=== PATIENT | female | born 1995 | race African-American/Black ===

== ENCOUNTER 2018-08-13 09:03 | Emergency (ER) | payer BC, OTHER ==
[2018-08-13 09:30] VITALS: BP 115/67; PULSE 82; TEMP 99.2; BMI 26.6
[2018-08-13] MEDS ORDERED: ACETAMINOPHEN 500 MG TABLET (FP) PO ONE (10:11)
[2018-08-13] MEDS ORDERED: ACETAMINOPHEN 500 MG TABLET (FP) ONE (10:14)
--- NOTE | 2018-08-13 10:16 | PDOC ---
History of Present Illness - General Chief Complaint: Cold Symptoms Stated Complaint: CHEST PAIN (12 WKS ) Time Seen by Provider: 08/13/18 09:58 History Source: Patient Exam Limitations: Clinical Condition - History of Present Illness Initial Comments: 08/13/18 10:09 Patient 16 weeks with no significant past medical history present with complain of 4 day history of runny nose, nasal congestion, ROSE, intermittent cough and intermittent chest tightness. Denies fever, chills, nausea or vomiting and denies any other symptoms 08/13/18 10:12 Timing/Duration: other (4 days) Past History - Past Medical History Allergies/Adverse Reactions: Allergies Allergy/AdvReac Type Severity Reaction Status Date / Time No Known Allergies Allergy Verified 08/13/18 09:24 Home Medications: Ambulatory Orders Albuterol Sulfate Inhaler - [Ventolin Hfa Inhaler -] 1 - 2 inh PO QID PRN #1 inhaler 08/13/18 Benzonatate [Tessalon Pearls -] 100 mg PO TID PRN 2 Days #6 capsule 08/13/18 Ipratropium Orofino 2 spray NS BID PRN #1 spray 08/13/18 COPD: No - Immunization History Immunization Up to Date: Yes - Suicide/Smoking/Psychosocial Hx Smoking History: Never smoked Hx Alcohol Use: No Drug/Substance Use Hx: No Review of Systems - Review of Systems Able to Perform ROS?: Yes Is the patient limited Hebrew proficient: No Constitutional: No: Chills, Diaphoresis, Fever, Loss of Appetite, Malaise, Night Sweats, Weakness, Weight Stable, Other HEENTM: Yes: See HPI, Nose Congestion. No: Eye Pain, Blurred Vision, Tearing, Recent change in vision, Double Vision, Cataracts, Ear Pain, Ocular Prothesis, Ear Discharge, Nose Pain, Tinnitus, Nose Bleeding, Hearing Loss, Throat Pain, Throat Swelling, Mouth Pain, Dental Problems, Difficulty Swallowing, Mouth Swelling, Other Respiratory: Yes: Symptoms reported, See HPI, Cough. No: Orthopnea, Shortness of Breath, SOB with Exertion, SOB at Rest, Stridor, Wheezing, Productive cough, Hemoptysis, Other Cardiac (ROS): No: Chest Pain, Edema, Irregular Heart Rate, Lightheadedness, Palpitations, Syncope, Chest Tightness, Other ABD/GI: No: Abdominal Distended, Abd. Pain w/ defecation, Blood Streaked Bowels , Constipated, Diarrhea, Difficulty Swallowing, Nausea, Poor Appetite, Poor Fluid Intake, Rectal Bleeding, Vomiting, Indigestion, Abdominal cramping, Tarry Stools, Other Musculoskeletal: No: Back Pain, Muscle Pain All Other Systems: Reviewed and Negative *Physical Exam - Vital Signs Last Vital Signs Temp Pulse Resp BP Pulse Ox 99.2 F 82 18 115/67 99 08/13/18 09:24 08/13/18 09:24 08/13/18 09:24 08/13/18 09:24 08/13/18 09:24 - Physical Exam Comments: 08/13/18 10:11 GENERAL: Well developed, well nourished. Awake and alert. No acute distress. HEENT: Normocephalic, atraumatic. PERRLA, EOMI. No conjunctival pallor. Sclera are non-icteric. Moist mucous membranes. Oropharynx is clear. NECK: Supple. Full ROM. CARDIOVASCULAR: Regular rate and rhythm. No murmurs, rubs, or gallops. Distal pulses are 2+ and symmetric. PULMONARY: No evidence of respiratory distress. Lungs clear to auscultation bilaterally. No wheezing, rales or rhonchi. ABDOMINAL: Soft. Non-tender. Non-distended. No rebound or guarding. No organomegaly. Normoactive bowel sounds. MUSCULOSKELETAL Normal range of motion at all joints. EXTREMITIES: No cyanosis. No clubbing. No edema. No calf tenderness. SKIN: Warm and dry. Normal capillary refill. No rashes. No jaundice. NEUROLOGICAL: Alert, awake, appropriate. Gait is normal without ataxia. PSYCHIATRIC: Cooperative. Good eye contact. Appropriate mood General Appearance: Yes: Nourished, Appropriately Dressed. No: Apparent Distress Medical Decision Making - Medical Decision Making 08/13/18 10:12 16 weeks patient with no sig past medical history present with complain of 4 day history of URI symptoms and cough. Clinical exam unremarkable. Patient stable for outpatient treatment for URI with PCP follow- up. Tylenol 1 g given for headache *DC/Admit/Observation/Transfer Diagnosis at time of Disposition: Cough, Nasal congestion URI (upper respiratory infection) Qualifiers: URI type: unspecified URI Qualified Code(s): J06.9 - Acute upper respiratory infection, unspecified - Discharge Dispostion Disposition: HOME Condition at time of disposition: Stable Decision to Admit order: No - Prescriptions Prescriptions: Albuterol Sulfate Inhaler - [Ventolin Hfa Inhaler -] 1 - 2 inh PO QID PRN #1 inhaler PRN Reason: Cough Benzonatate [Tessalon Pearls -] 100 mg PO TID PRN 2 Days #6 capsule PRN Reason: Cough Ipratropium Orofino 2 spray NS BID PRN #1 spray PRN Reason: nasal congestion - Referrals Referrals: Erma Cruz MD [Primary Care Provider] - - Patient Instructions Printed Discharge Instructions: DI for Common Cold - Post Discharge Activity
== END 2018-08-13 10:22 | disposition home or self-care (01) ==
LOC: JERFT 09:03
DX: O99.89 Other specified diseases and conditions complicating pregnancy, childbirth and the puerperium (principal); J06.9 Acute upper respiratory infection, unspecified; Z3A.16 16 weeks gestation of pregnancy
CPT/HCPCS: 99281-25

== ENCOUNTER 2018-12-31 18:15 | Emergency (ER) | payer BC, OTHER ==
[2018-12-31 18:53] VITALS: BMI 31.8
--- NOTE | 2018-12-31 18:55 | PDOC ---
Rapid Medical Evaluation Chief Complaint: Nausea Medical Evaluation: Allergies Allergy/AdvReac Type Severity Reaction Status Date / Time No Known Allergies Allergy Verified 12/31/18 18:49 12/31/18 18:50 I have performed a brief in-person evaluation of this patient. The patient presents with a chief complaint of: nausea/ vomiting x 3 this am , diarhea/ x 6 last pm - [facility] , is 36 weeks preg. Pertinent physical exam findings: has body aches and lower abd pressure I have ordered the following: influenza/ called L and D and will be taken for eval/ fluids. The patient will proceed to the ED for further evaluation. 12/31/18 18:55 Discharge Disposition - Diagnosis N&V (nausea and vomiting) - Referrals - Patient Instructions - Post Discharge Activity
[2018-12-31 22:00] VITALS: TEMP 98
[2018-12-31] MEDS ORDERED: DEXTROSE 5%-LACTATED RINGERS 1,000 ML IV SCH (22:00)
--- NOTE | 2018-12-31 22:26 | PDOC ---
History of Present Illness - General Chief Complaint: Labor Assessment Stated Complaint: BODY ACHES/NAUSEA Time Seen by Provider: 12/31/18 21:48 History Source: Patient Exam Limitations: No Limitations - History of Present Illness Initial Comments: 12/31/18 22:23 HISTORY OF PRESENT ILLNESS: This is a 23-year-old currently 35 weeks 6 days gestation who presents emergency department for evaluation of diarrhea and vomiting for one day. Patient was initially seen and evaluated in rapid medical evaluation where flu swab was negative and patient was sent to labor and delivery for evaluation. Patient returned from L&D was noted to be tachycardic at 127 after receiving 1 L of IV fluids at [facility]. She denies fevers, chills, chest pain, shortness of breath. No recent travel or sick contacts. PAST MEDICAL HISTORY: Denies past medical history SURGICAL HISTORY: Denies ALLERGIES: No known drug allergies REVIEW OF SYSTEMS General/Constitutional: Denies fever or chills. Denies weakness, weight change. HEENT: Denies change in vision. Denies ear pain or discharge. Denies sore throat. Cardiovascular: Denies chest pain or shortness of breath. Respiratory: Denies cough, wheezing, or hemoptysis. Gastrointestinal: see HPI Genitourinary: Denies dysuria, frequency, or change in urination. Musculoskeletal: Denies joint or muscle swelling or pain. Denies neck or back pain. Skin and breasts: Denies rash or easy bruising. Neurologic: Denies headache, vertigo, loss of consciousness, or loss of sensation. Psychiatric: Denies depression or anxiety. Endocrine: Denies increased thirst. Denies abnormal weight change. Hematologic/Lymphatic: Denies anemia, easy bleeding, or history of blood clots. Allergic/Immunologic: Denies hives or skin allergy. Denies latex allergy. PHYSICAL EXAM General Appearance: Well-appearing, appropriately dressed. No apparent distress , no intoxication. HEENT: EOMI, PERRLA, normal ENT inspection, normal voice, TMs normal, pharynx normal. No conjunctival pallor. No photophobia, scleral icterus. Neck: Supple. Trachea midline. No tenderness, rigidity, carotid bruit, stridor , lymphadenopathy, or thyromegaly. Respiratory/Chest: Lungs CTAB. No shortness of breath, chest tenderness, respiratory distress, accessory muscle use. No crackles, rales, rhonchi, stridor , wheezing, dullness Cardiovascular: Tachycardic. S1, S2. No JVD, murmur, bradycardia. Vascular Pulses: Dorsalis-Pedis (R): 2+, Dorsalis-Pedis (L): 2+ Gastrointestinal/Abdominal: Normal bowel sounds. Gravid abdomen. No tenderness or rebound tenderness. No organomegaly, pulsatile mass, guarding, hernia, hepatomegaly, splenomegaly. Lymphatic: No adenopathy, tenderness. Musculoskeletal/Extremities: Normal inspection. FROM of all extremities, normal capillary refill. Pelvis Stable. No CVA tenderness. No tenderness to extremities, pedal edema, swelling, erythema or deformity. Integumentary: Appropriate color, dry, warm. No cyanosis, erythema, jaundice or rash Neurologic: leaf sticker II-XII intact. Fully oriented, alert. Appropriate mood/affect. Motor strength 5/5. No appreciable EOM palsy, facial droop or sensory deficit. Past History - Past Medical History Allergies/Adverse Reactions: Allergies Allergy/AdvReac Type Severity Reaction Status Date / Time No Known Allergies Allergy Verified 12/31/18 22:08 Home Medications: Ambulatory Orders Ferrous Sulfate 325 mg PO BID 12/31/18 Iron IV WEEKLY 12/31/18 Pnv No.95/Ferrous Fum/Folic AC [ Vitamin Tablet] 1 each PO DAILY Cephalexin Monohydrate [Keflex -] 500 mg PO BID #14 capsule 01/01/19 COPD: No - Immunization History Immunization Up to Date: Yes - Suicide/Smoking/Psychosocial Hx Smoking History: Never smoked Hx Alcohol Use: No Drug/Substance Use Hx: No *Physical Exam - Vital Signs Last Vital Signs Temp Pulse Resp BP Pulse Ox 98.0 F 126 H 18 101/65 99 12/31/18 21:00 12/31/18 21:53 12/31/18 21:53 12/31/18 21:53 12/31/18 21:53 Moderate Sedation - Procedure Monitoring Vital Signs: Procedure Monitoring Vital Signs Temperature 98.0 F 12/31/18 21:00 Pulse Rate 126 H 12/31/18 21:53 Respiratory Rate 18 12/31/18 21:53 Blood Pressure 101/65 12/31/18 21:53 O2 Sat by Pulse Oximetry (%) 99 12/31/18 21:53 ED Treatment Course - LABORATORY CBC & Chemistry Diagram: 12/31/18 23:00 12/31/18 23:00 Medical Decision Making - Medical Decision Making 12/31/18 22:25 A/P: 23-year-old woman who is 36 weeks gestation with diarrhea and tachycardia EKG, labs, urine, IV fluids, reassess 01/01/19 02:48 Laboratory testing is unremarkable. Urinalysis with 1+ leuk esterase 8 WBCs on high-power field. This patient is I will treat for urinary tract infection. I discussed the physical exam findings, ancillary test results and final diagnoses with the patient. I answered all of the patient's questions. The patient was satisfied with the care received and felt comfortable with the discharge plan and treatment plan. The patient will call their primary care physician within 24 hours to arrange follow-up and will return to the Emergency Department with any new, persistent or worsening symptoms. *DC/Admit/Observation/Transfer Diagnosis at time of Disposition: N&V (nausea and vomiting) UTI (urinary tract infection) Qualifiers: Urinary tract infection type: acute cystitis Hematuria presence: without hematuria Qualified Code(s): N30.00 - Acute cystitis without hematuria - Discharge Dispostion Disposition: HOME Condition at time of disposition: Fair Decision to Admit order: No - Prescriptions Prescriptions: Cephalexin Monohydrate [Keflex -] 500 mg PO BID #14 capsule - Referrals Referrals: Benjamin Shaver MD [Staff Physician] - 1 week (12/31/18 4905 Safely discharged from labor and delivery. Please see your MD and make him aware of todays findings. Return to the hospital if you experience lower abdominal pain, vaginal bleeding and/or suspect decrease baby movement and/or rupture of membranes. ) - Patient Instructions Additional Instructions: Rest, drink lots of fluids: Teas, water, soups Avoid contact with others until fevers and symptoms resolved Lots of handwashing and good hygiene Continue [id number] medications for symptomatic relief Tylenol or Motrin for fever and pain Continue all of antibiotics until completed Followup with private physician in one week for repeat urinalysis/reevaluation Return to emergency department for worsened symptoms, fevers, dehydration. - Post Discharge Activity Forms/Work/School Notes: Parent(s) Back to Work Note
[2018-12-31 23:31] LABS: BASO % 0.2 % (0-2.0); EOS % 0.2 % (0-4.5); HEMOGLOBIN 10.9 GM/dL (10.7-15.3); LYMPH % 6.1 % (8-40); MCH 29.9 pg (25.7-33.7); MEAN CELL VOLUME 90.6 fl (80-96); MEAN PLT VOLUME 9.3 fl (7.5-11.1); MONO % 6.1 % (3.8-10.2); NEUT % 87.4 % (42.8-82.8); PLATELET COUNT 206 K/MM3 (134-434); RBC 3.65 M/mm3 (3.60-5.2); RDW 15.1 % (11.6-15.6); WHITE BLOOD COUNT 12.1 K/mm3 (4.0-10.0)
[2019-01-01 01:54] LABS: URINE APPEARANCE SLCLOUDY; URINE BILIRUBIN NEGATIVE (<2.0 mg/dL); URINE COLOR YELLOW; URINE GLUCOSE (UA) 1+ (NEGATIVE); URINE KETONE NEGATIVE (NEGATIVE); URINE LEUK ESTERASE 1+ (NEGATIVE); URINE NITRITE NEGATIVE (NEGATIVE); URINE PROTEIN NEGATIVE (NEGATIVE); URINE UROBILINOGEN 4.0 E.U/dl mg/dL (0.2-1.0)
[2019-01-01 02:05] LABS: EPI CELLS MODERATE /HPF (FEW); URINE BACTERIA RARE /hpf (NONE SEEN); URINE MUCUS RARE
[2019-01-01 02:40] LABS: ALK PHOS 166 U/L (45-117); ANION GAP 9 MMOL/L (8-16); BILIRUBIN,TOTAL 0.4 mg/dL (0.2-1); BLOOD UREA NITROGEN 4 mg/dL (7-18); CALCIUM 8.5 mg/dL (8.5-10.1); CHLORIDE 105 mmol/L (98-107); CO2 21 mmol/L (21-32); CREATININE 0.5 mg/dL (0.55-1.3); GLUCOSE,RANDOM 86 mg/dL (74-106); POTASSIUM 3.5 mmol/L (3.5-5.1); SGOT/AST 12 U/L (15-37); SGPT/ALT 12 U/L (13-61); SODIUM 135 mmol/L (136-145); TOT PROT 6.4 g/dl (6.4-8.2)
[2019-01-01 03:01] VITALS: BP 100/65; PULSE 106
--- NOTE | 2019-01-01 14:19 | EKG ---
Test Reason : Blood Pressure : / mmHG Vent. Rate : 126 BPM Atrial Rate : 126 BPM P-R Int : 124 ms QRS Dur : 080 ms QT Int : 312 ms P-R-T Axes : 057 027 011 degrees QTc Int : 451 ms SINUS TACHYCARDIA NONSPECIFIC T WAVE ABNORMALITY ABNORMAL ECG NO PREVIOUS ECGS AVAILABLE Confirmed by FANNY HAMILTON MD ([id number]) on 01/01/2019 2:18:59 PM Referred By: Confirmed By:FANNY HAMILTON MD
== END 2019-01-01 03:01 | disposition home or self-care (01) ==
LOC: JER 18:15
DX: O26.893 Other specified pregnancy related conditions, third trimester (principal); O23.13 Infections of bladder in pregnancy, third trimester; N30.80 Other cystitis without hematuria; Z3A.36 36 weeks gestation of pregnancy
CPT/HCPCS: 36415; 80053; 81003; 81015; 85025; 87086; 87804; 93005; 93010; 99282-25